=== PATIENT | male | born 1965 | race Caucasian/White ===

== ENCOUNTER 2020-12-23 12:12 | Emergency (ER) | payer OTHER ==
[2020-12-23 12:17] VITALS: BP 118/74; PULSE 84; TEMP 98.6; BMI 26.6
[2020-12-23] MEDS ORDERED: KETOROLAC TROMETHAMINE 60 MG/2 ML VIAL IM ONE (12:56)
[2020-12-23] MEDS ORDERED: KETOROLAC TROMETHAMINE 60 MG/2 ML VIAL ONE (12:58)
== END 2020-12-23 15:28 | disposition home or self-care (01) ==
LOC: JERFT 12:12
PROC: 3E0233Z Introduction of Anti-inflammatory into Muscle, Percutaneous Approach (ICD-10-PCS; principal; 2020-12-23)
DX: S20.222A Contusion of left back wall of thorax, initial encounter (principal); S22.32XA Fracture of one rib, left side, initial encounter for closed fracture
CPT/HCPCS: 71111-TC-FY; 72100-TC-FY; 99284-25

== ENCOUNTER 2020-12-26 12:08 | Emergency (ER) | payer OTHER ==
[2020-12-26 13:12] VITALS: BP 130/84; PULSE 67; TEMP 97.7; BMI 26.6
[2020-12-26] MEDS ORDERED: KETOROLAC TROMETHAMINE 30 MG/1 ML VIAL IM ONE (13:41)
[2020-12-26] MEDS ORDERED: LIDOCAINE 5% TOPICAL PATCH TP ONE (13:48)
[2020-12-26] MEDS ORDERED: LIDOCAINE 5% TOPICAL PATCH ONE (14:00)
[2020-12-26 14:39] LABS: URINE APPEARANCE CLEAR; URINE BILIRUBIN NEGATIVE (NEGATIVE); URINE COLOR YELLOW; URINE GLUCOSE (UA) 3+ (NEGATIVE); URINE KETONE TRACE (NEGATIVE); URINE LEUK ESTERASE NEGATIVE (NEGATIVE); URINE NITRITE NEGATIVE (NEGATIVE); URINE PROTEIN NEGATIVE (NEGATIVE)
== END 2020-12-26 15:19 | disposition home or self-care (01) ==
LOC: JER 12:08
PROC: 3E0233Z Introduction of Anti-inflammatory into Muscle, Percutaneous Approach (ICD-10-PCS; principal; 2020-12-26)
DX: R81 Glycosuria (principal); S22.32XA Fracture of one rib, left side, initial encounter for closed fracture
CPT/HCPCS: 81003; 99284-25